=== PATIENT | male | born 1980 | race Caucasian/White ===

== ENCOUNTER 2022-06-04 16:41 | Emergency (ER) | payer BC ==
[2022-06-04 17:43] LABS: Potassium 3.9 mmol/L (3.5-5.1)
[2022-06-04 17:47] LABS: Absolute Lymphocytes (CBC) 2.2 K/uL (0.7-4.9); Hematocrit 43.1 % (39.6-49.0); Lymphocytes % 34.1 % (15.3-44.8); MCV 87.8 fL (80-100); MPV 9.1 fL (7.6-11.3); RBC Red Blood Cell Count 4.91 M/uL (4.33-5.43)
--- NOTE | 2022-06-04 18:41 | RAD REPORT ---
EXAM DESCRIPTION: US - Extremity Venous Uni Ltd - 06/04/2022 6:32 pm CLINICAL HISTORY: Swelling, rule out DVT COMPARISON: None. TECHNIQUE: Real-time sonographic evaluation of the left lower extremity deep venous system was perfo rmed. FINDINGS: Normal compressibility, flow augmentation, phasic flow and spontaneous flow is identified in the left lower extremity deep venous system. No intraluminal filling defects seen. IMPRESSION: No DVT in the left lower extremity.
--- NOTE | 2022-06-04 18:50 | EDPHYS ---
Physician Documentation [facility] Name: Derrick Lagos Age: 42 yrs Sex: Male : 1980 Arrival Date: 06/04/2022 Time: 16:44 Bed 19 Private MD: ED Physician Perri Lopez HPI: 06/04 16:55 This 42 yrs old Male presents to ER via Ambulatory with complaints of Foot Swelling. jh7 16:55 The patient presents with pain, that is acute. The complaints affect the right padilla. jh7 Onset: The symptoms/episode began/occurred 1 month(s) ago. Patient reports that something struck his left padilla on May 08. States that this past week he has noticed that the area has become red, warm, and tender to palpation. Also reports swelling in the foot and ankle. Denies fever or any other symptoms.. Historical: - Allergies: 16:51 No Known Allergies; ll1 - PMHx: 16:51 None; ll1 - PSHx: 16:51 R foot SX; ll1 - Immunization history:: Client reports having NOT received the Covid vaccine. - Social history:: Smoking status: Patient denies any tobacco usage or history of. ROS: 16:55 Constitutional: Negative for fever, chills, and weight loss, Eyes: Negative for injury, jh7 pain, redness, and discharge, ENT: Negative for injury, pain, and discharge, Cardiovascular: Negative for chest pain, palpitations, and edema, Respiratory: Negative for shortness of breath, cough, wheezing, and pleuritic chest pain, Abdomen/GI: Negative for abdominal pain, nausea, vomiting, diarrhea, and constipation, Skin: Negative for injury, rash, and discoloration, Neuro: Negative for headache, weakness, numbness, tingling, and seizure. 16:55 MS/extremity: Positive for erythema, pain, swelling, tenderness. 16:55 All other systems are negative. Exam: 16:55 Constitutional: This is a well developed, well nourished patient who is awake, alert, jh7 and in no acute distress. Head/Face: Normocephalic, atraumatic. Neck: Trachea midline, no thyromegaly or masses palpated, and no cervical lymphadenopathy. Supple, full range of motion without nuchal rigidity, or vertebral point tenderness. No Meningismus. Cardiovascular: Regular rate and rhythm with a normal S1 and S2. No gallops, murmurs, or rubs. Normal PMI, no JVD. No pulse deficits. Respiratory: Lungs have equal breath sounds bilaterally, clear to auscultation and percussion. No rales, rhonchi or wheezes noted. No increased work of breathing, no retractions or nasal flaring. Abdomen/GI: Soft, non-tender, with normal bowel sounds. No distension or tympany. No guarding or rebound. No evidence of tenderness throughout. Back: No spinal tenderness. No costovertebral tenderness. Full range of motion. Skin: Warm, dry with normal turgor. Normal color with no rashes, no lesions. Neuro: Awake and alert, GCS 15, oriented to person, place, time, and situation. Motor strength 5/5 in all extremities. Sensory grossly intact. Normal gait. 16:55 Musculoskeletal/extremity: ROM: intact in all extremities, Circulation is intact in all extremities. Sensation intact. DVT Exam: Lateral aspect of left padilla is tender to palpation with mild warmth and erythema. The left foot has 2+ pitting edema, but the patient denies pain and has full range of motion. Neurovascularly intact.. Vital Signs: 16:49 BP 135 / 77; Pulse 76; Resp 17; Temp 98.0; Pulse Ox 97% ; Weight 95.25 kg; Height 5 ft. ll1 10 in. (177.80 cm); Pain 3/10; 16:49 Body Mass Index 30.13 (95.25 kg, 177.80 cm) ll1 MDM: 16:56 Patient medically screened. [facility] 06/04 17:06 Order name: CBC with Diff; Complete Time: 18:18 [facility] 06/04 17:06 Order name: BMP; Complete Time: 18:18 [facility] 06/04 17:06 Order name: Extremity Venous Uni Ltd US [facility] 06/04 18:42 Order name: US; Complete Time: 18:50 EDMS Administered Medications: No medications were administered Disposition Summary: 06/04/22 18:49 Discharge Ordered Location: Home [facility] Problem: new [facility] Symptoms: are unchanged [facility] Condition: Stable [facility] Diagnosis - Pain in left lower leg [facility] Followup: [facility] - With: Private Physician - When: 2 - 3 days - Reason: Recheck today's complaints Discharge Instructions: - Discharge Summary Sheet jh7 - Hematoma jh7 - Musculoskeletal Pain jh7 Forms: - Medication Reconciliation Form jh7 - Thank You Letter jh7 Signatures: Dispatcher Kumar Le RN RN ll1 Maranda Vallecillo, JONY SOFTWARE APPLICATIONS ENGINEER jh7
--- NOTE | 2022-06-04 18:50 | ER ---
Nurse's Notes [facility] Name: Derrick Lagos Age: 42 yrs Sex: Male : 1980 Arrival Date: 06/04/2022 Time: 16:44 Bed 19 Private MD: Diagnosis: Pain in left lower leg Presentation: 06/04 16:49 Chief complaint: Patient states: Hit L leg May 08 and has had a knot to L calf area ll1 since. Today, noticed site was swollen, hot to touch. + tender per patient. L foot is swollen now also. No fever. Coronavirus screen: Vaccine status: Patient reports being unvaccinated. Client denies travel out of the [place] in the last 14 days. At this time, the client does not indicate any symptoms associated with coronavirus-19. Ebola Screen: Patient denies travel to an Ebola-affected area in the 21 days before illness onset. Initial Sepsis Screen: Does the patient meet any 2 criteria? No. Patient's initial sepsis screen is negative. Does the patient have a suspected source of infection? Yes: Bone or joint infection. Risk Assessment: Do you want to hurt yourself or someone else? Patient reports no desire to harm self or others. Onset of symptoms was May 08, 2022. 16:49 Method Of Arrival: Ambulatory ll1 16:49 Acuity: DONITA 3 ll1 Historical: - Allergies: 16:51 No Known Allergies; ll1 - PMHx: 16:51 None; ll1 - PSHx: 16:51 R foot SX; ll1 - Immunization history:: Client reports having NOT received the Covid vaccine. - Social history:: Smoking status: Patient denies any tobacco usage or history of. Screenin:30 Abuse screen: Denies threats or abuse. Denies injuries from another. Nutritional hb screening: No deficits noted. Tuberculosis screening: No symptoms or risk factors identified. Fall Risk None identified. Assessment: 17:30 General: Appears in no apparent distress. Behavior is calm, cooperative. Pain: Pain hb currently is 3 out of 10 on a pain scale. Neuro: Level of Consciousness is awake, alert, obeys commands, Oriented to person, place, time, situation. Cardiovascular: Patient's skin is warm and dry. Respiratory: Respiratory effort is even, unlabored, Respiratory pattern is regular, symmetrical. GI: No signs and/or symptoms were reported involving the gastrointestinal system. : No signs and/or symptoms were reported regarding the genitourinary system. EENT: No signs and/or symptoms were reported regarding the EENT system. Derm: Skin is pink, warm \T\ dry. Musculoskeletal: Swelling LLE. 18:47 Reassessment: Patient appears in no apparent distress at this time. Patient and/or hb family updated on plan of care and expected duration. Pain level reassessed. Patient is alert, oriented x 3, equal unlabored respirations, skin warm/dry/pink. Vital Signs: 16:49 BP 135 / 77; Pulse 76; Resp 17; Temp 98.0; Pulse Ox 97% ; Weight 95.25 kg; Height 5 ft. ll1 10 in. (177.80 cm); Pain 3/10; 16:49 Body Mass Index 30.13 (95.25 kg, 177.80 cm) ll1 ED Course: 16:44 Patient arrived in ED. mr 16:45 [facility]cillo [facility] 16:45 Perri Lopez MD is Attending Physician. [facility] 16:45 Arm band placed on. ll1 16:51 Triage completed. 1 16:58 Pham Cutler, RN is Primary Nurse. hb 17:21 Inserted saline lock: 20 gauge in right antecubital area, using aseptic technique. hb Blood collected. 17:30 Patient has correct armband on for positive identification. hb 19:00 No provider procedures requiring assistance completed. IV discontinued, intact, hb bleeding controlled, No redness/swelling at site. Administered Medications: No medications were administered Medication: 17:30 VIS not applicable for this client. hb Outcome: 18:49 Discharge ordered by [facility] 19:00 Discharged to home ambulatory, with significant other. hb 19:00 Condition: stable 19:00 Discharge instructions given to patient, Instructed on discharge instructions, follow up and referral plans. Demonstrated understanding of instructions, follow-up care. 19:00 Patient left the ED. hb Signatures: Yoly Linares Pham Cutler, RN Kumar Jones RN RN [facility] Maranda Vallecillo FNP [employer] [facility]
[2022-06-04 20:25] VITALS: BP 135/77; TEMP 98; O2SAT 97
== END 2022-06-04 19:00 | disposition home or self-care (01) ==
LOC: ER 16:41
DX: M79.662 Pain in left lower leg (principal)
CPT/HCPCS: 36415; 80048; 85025; 93971; 99283

== ENCOUNTER 2023-04-30 13:58 | Emergency (ER) | payer BC ==
--- NOTE | 2023-04-30 14:27 | ER ---
Nurse's Notes [facility] Name: Derrick Lagos Age: 42 yrs Sex: Male : 1980 Arrival Date: 04/30/2023 Time: 13:58 Bed 16 Private MD: Diagnosis: Sciatica, left side Presentation: 04/30 14:07 Chief complaint: Patient states: Pain that radiates from L hip down to L calf that ss began yesterday. Coronavirus screen: Client denies travel out of the [place] in the last 14 days. Ebola Screen: Patient denies exposure to infectious person. Patient denies travel to an Ebola-affected area in the 21 days before illness onset. Initial Sepsis Screen: Does the patient meet any 2 criteria? No. Patient's initial sepsis screen is negative. Does the patient have a suspected source of infection? No. Patient's initial sepsis screen is negative. Risk Assessment: Do you want to hurt yourself or someone else? Patient reports no desire to harm self or others. Onset of symptoms was April 29, 2023. 14:07 Method Of Arrival: Ambulatory ss 14:07 Acuity: DONITA 4 ss Historical: - Allergies: 14:10 No Known Allergies; ss - Home Meds: 14:10 None [Active]; ss - PMHx: 14:10 None; ss - PSHx: 14:10 R foot SX; ss - Immunization history:: Adult Immunizations up to date. - Social history:: Smoking status: Patient denies any tobacco usage or history of. Screenin:05 [facility] ED Fall Risk Assessment (Adult) History of falling in the last 3 months, ko1 including since admission No falls in past 3 months (0 pts) Confusion or Disorientation No (0 pts) Intoxicated or Sedated No (0 pts) Impaired Gait No (0 pts) Mobility Assist Device Used No (0 pt) Altered Elimination No (0 pt) Score/Fall Risk Level 0 - 2 = Low Risk Oriented to surroundings, Maintained a safe environment, Educated pt \T\ family on fall prevention, incl call for assistance when getting out of bed, Assessed \T\ reinforced patient's understanding of fall precautions, Provided non-skid footwear, Hourly rounding (assess needs \T\ fall precautionary measures) done, Used ambulatory aids as needed (educated on \T\ assisted with), Used gait belt as appropriate. Abuse screen: Denies threats or abuse. Denies injuries from another. Nutritional screening: No deficits noted. Tuberculosis screening: No symptoms or risk factors identified. Assessment: 14:05 General: Appears in no apparent distress. uncomfortable, Behavior is calm, cooperative, ko1 appropriate for age. Pain: Complains of pain in back, left buttock and left leg. Neuro: No deficits noted. Cardiovascular: No deficits noted. Respiratory: No deficits noted. GI: No deficits noted. : No deficits noted. EENT: No deficits noted. Derm: No deficits noted. Musculoskeletal: No deficits noted. Vital Signs: 14:05 BP 138 / 90; Pulse 70; Resp 16; Pulse Ox 100% ; ko1 14:07 BP 144 / 107; Pulse 73; Resp 16; Temp 98; Pulse Ox 100% on R/A; Weight 95.25 kg; Height ss 5 ft. 10 in. ; Pain 9/10; 14:07 Body Mass Index 30.13 (95.25 kg, 177.8 cm) ss 14:07 Pain Scale: Adult ss ED Course: 14:00 Patient arrived in ED. mr 14:02 Bean Ordaz MD is Attending Physician. bs3 14:04 Ama Tiwari, KAYLEIGH is Primary Nurse. ko1 14:05 Patient has correct armband on for positive identification. Bed in low position. Call ko1 light in reach. Pulse ox on. NIBP on. Door closed. Noise minimized. Warm blanket given. 14:05 No provider procedures requiring assistance completed. ko1 14:10 Triage completed. ss 14:10 Arm band placed on right wrist. ss 14:52 Patient did not have IV access during this emergency room visit. ko1 Administered Medications: 14:33 Drug: Ketorolac IM 30 mg Route: IM; Site: right deltoid; ko1 14:33 Drug: Dexamethasone IM 10 mg Route: IM; Site: left deltoid; ko1 Medication: 14:05 VIS not applicable for this client. ko1 Outcome: 14:26 Discharge ordered by . bs3 14:52 Discharged to home ambulatory, with family. ko1 14:52 Condition: good 14:52 Discharge instructions given to patient, family, Instructed on discharge instructions, follow up and referral plans. medication usage, Demonstrated understanding of instructions, follow-up care, medications, Prescriptions given X 2. 14:53 Patient left the ED. ss Signatures: Yoly Linares Shelby, RN RN ss Bean Ordaz MD MD bs3 Ama Tiwari RN RN ko1
--- NOTE | 2023-04-30 14:27 | EDPHYS ---
Physician Documentation [facility] Name: Derrick Lagos Age: 42 yrs Sex: Male : 1980 Arrival Date: 04/30/2023 Time: 13:58 Bed 16 Private MD: ED Physician Bean Ordaz HPI: 04/30 14:23 This 42 yrs old Male presents to ER via Ambulatory with complaints of Hip bs3 Pain, Leg Pain. 14:23 42-year-old male no significant past medical history presents with left leg pain bs3 started approximately 2 days ago radiates from his left gluteal region down the back of his leg gnosis is numbness tingling or weakness it is a sharp burning pain he tried massage and Tylenol without relief denies any trauma denies any fevers chills night sweats weight loss IV drug use urinary or bowel symptoms history of cancer saddle anesthesia. Historical: - Allergies: 14:10 No Known Allergies; ss - Home Meds: 14:10 None [Active]; ss - PMHx: 14:10 None; ss - PSHx: 14:10 R foot SX; ss - Immunization history:: Adult Immunizations up to date. - Social history:: Smoking status: Patient denies any tobacco usage or history of. ROS: 14:23 Constitutional: Negative for fever, chills bs3 14:23 All other systems are negative. Exam: 14:23 Constitutional: This is a well developed, well nourished patient who is awake, alert, bs3 and in no acute distress. Head/Face: Normocephalic, atraumatic. Eyes: Pupils equal round and reactive to light, extra-ocular motions intact. Lids and lashes normal. ENT: mmm, no posterior phyarngeal erythema Chest/axilla: Normal chest wall appearance and motion. Nontender with no deformity. No lesions are appreciated. Cardiovascular: Regular rate and rhythm with a normal S1 and S2. symmetric pulses in upper extremities Respiratory: Lungs have equal breath sounds bilaterally, clear to auscultation, no respiratory distress Skin: Warm, dry with normal turgor. Normal color with no rashes, no lesions, and no evidence of cellulitis. MS/ Extremity: Pulses equal, no cyanosis. Neurovascular intact. Full, normal range of motion. No calf swelling or tenderness, pain is radiating from gluteal region on left, no midline back pain to palpation, pain to percussion over spine, no redness, no rash, normal rectal tone, no saddle anesthesia, +straight leg raise on the left. Neuro: Awake and alert, GCS 15, oriented to person, place, time, and situation. Cranial nerves II-XII grossly intact. Motor strength 5/5 in all extremities. Sensory grossly intact. Vital Signs: 14:05 BP 138 / 90; Pulse 70; Resp 16; Pulse Ox 100% ; ko1 14:07 BP 144 / 107; Pulse 73; Resp 16; Temp 98; Pulse Ox 100% on R/A; Weight 95.25 kg; Height ss 5 ft. 10 in. ; Pain 9/10; 14:07 Body Mass Index 30.13 (95.25 kg, 177.8 cm) ss 14:07 Pain Scale: Adult ss MDM: 14:02 Patient medically screened. bs3 14:23 Differential diagnosis: strain, sciatic, epidural abscess, cauda equina. Data reviewed: bs3 vital signs, nurses notes. Test considered but Not performed: CT: Normal spine however no occult trauma patient able to ambulate considered x-ray but no fall or fracture suspect. ED course: will tx pain, hx/pe consistent with sciatica, no red flags, advised outpatient f/u in 6 weeks if persistent and return for red flag symptoms. . Administered Medications: 14:33 Drug: Ketorolac IM 30 mg Route: IM; Site: right deltoid; ko1 14:33 Drug: Dexamethasone IM 10 mg Route: IM; Site: left deltoid; ko1 Disposition Summary: 04/30/23 14:26 Discharge Ordered Location: Home bs3 Problem: new bs3 Symptoms: have improved bs3 Condition: Stable bs3 Diagnosis - Sciatica, left side bs3 Followup: bs3 - With: Private Physician - When: 1 week - Reason: Re-evaluation by your physician Discharge Instructions: - Discharge Summary Sheet bs3 - Sciatica bs3 Forms: - Medication Reconciliation Form bs3 - Thank You Letter bs3 - [email or web address] bs3 Prescriptions: - meloxicam 15 mg Oral tablet - take 1 tablet by ORAL route daily for 14 days; 14 tablet; Refills: 0, Product bs3 Selection Permitted - Cyclobenzaprine 10 mg Oral Tablet - take 1 tablet by ORAL route every 8 hours As needed; 30 tablet; Refills: 0, bs3 Product Selection Permitted Signatures: Melany Johansen, RN RN ss Bean Ordaz MD MD bs3 Ama Tiwari, RN RN ko1
[2023-04-30] MEDS ORDERED: dexAMETHasone 10 MG/ML VIAL ONE (14:33)
[2023-04-30] MEDS ORDERED: KETOROLAC 30 MG/ML INJ ONE (14:33)
[2023-04-30 15:06] VITALS: O2SAT 100
[2023-04-30 15:08] VITALS: BP 144/107; TEMP 98
== END 2023-04-30 14:53 | disposition home or self-care (01) ==
LOC: ER 13:58
DX: M54.32 Sciatica, left side (principal)
CPT/HCPCS: J1100